=== PATIENT | male | born 1985 | race Caucasian/White ===

== ENCOUNTER 2024-10-02 16:40 | Outpatient (CLI) | payer MEDICAID, SELFPAY ==
[2024-10-02 16:51] LABS: Basophils # 0.1 K/mm3 (0-0.2); Basophils % 0.8 % (0.1-2.0); Eosinophils # 0.2 K/mm3 (0.0-0.4); Hematocrit 42.4 % (42.0-52.0); Hemoglobin 14.5 g/dL (14.1-18.0); Lymphocytes # 2.2 K/mm3 (0.7-4.5); Lymphocytes % 33.9 % (10-50); Mean Corpuscular HGB Conc 34.2 g/dL (31.8-35.4); Mean Corpuscular Hemoglobin 29.5 pg (27.0-31.2); Mean Corpuscular Volume 86.2 fl (80-94); Mean Platelet Volume 8.8 fl (7.4-10.4); Monocytes # 0.7 K/mm3 (0.1-1.0); Monocytes % 11.3 % (1.7-9.3); Neutrophils # 3.3 K/mm3 (1.8-7.8); Neutrophils % 50.7 % (37.0-80.0); Platelet Count 444 K/mm3 (142-424); Red Blood Count 4.92 M/mm3 (4.60-6.20); Red Cell Distribution Width 12.8 % (11.5-17.5); White Blood Count 6.6 K/mm3 (4.8-10.8)
[2024-10-02 17:19] LABS: Chloride 106 mmol/L (98-107)
[2024-10-02 17:20] LABS: Albumin Level 4.6 g/dl (3.5-5.0); Potassium 4.9 mmoL/L (3.5-5.1); Sodium 137 mmol/L (136-145)
[2024-10-02 17:22] LABS: Alanine Aminotransferase 47 U/L (12-78); Alkaline Phosphatase 107 U/L (38-126); Anion Gap 13.9 mEq/L (5-15); Aspartate Amino Transferase 46 U/L (17-59); Bilirubin,Total 0.7 mg/dl (0.2-1.3); Blood Urea Nitrogen 21 mg/dl (9-20); Carbon Dioxide 22 mmol/L (22.0-30.0); Estimated Glomerular Filt Rate 109 ml/min (>60); GFR (African American) 132 ML/MIN (>60); Globulin 2.3 g/dL (1.3-3.2); Total Protein,Serum 6.9 g/dl (6.3-8.2)
[2024-10-02 17:23] LABS: Calcium 10.1 mg/dl (8.4-10.2); Glucose 82 mg/dl (74-100); Iron 111 ug/dL (49-181)
[2024-10-02 17:32] LABS: Total Iron Binding Capacity 365 ug/dL (261-462)
[2024-10-02 17:49] LABS: Hemoglobin A1C 5.2 % (4.0-6.0)
[2024-10-02 17:58] LABS: Ferritin 71.1 ng/ml (17.9-464)
== END 2024-10-02 23:59 | disposition home or self-care (01) ==
LOC: LAB.DROPOF 16:41
PROVIDERS: PCP Internal Medicine; Visit Provider Internal Medicine
DX: G25.81 Restless legs syndrome (principal); Z00.00 Encounter for general adult medical examination without abnormal findings; Z13.1 Encounter for screening for diabetes mellitus
CPT/HCPCS: 80053; 82728; 83036; 83540; 83550; 85025

== ENCOUNTER 2024-10-08 16:02 | Outpatient (CLI) | payer MEDICAID, SELFPAY ==
[2024-10-08 17:06] LABS: Chol/HDL Ratio 6.6 (1-3.5); Cholesterol 191 mg/dl (140-200); HDL Cholesterol 29 mg/dl (40-60); Triglycerides 244 mg/dl (30-150); VLDL Cholesterol 49 mg/dL (0-40)
[2024-10-08 17:17] LABS: Direct LDL Cholesterol 118.24 mg/dL (100-129)
== END 2024-10-08 23:59 | disposition home or self-care (01) ==
LOC: LAB 16:04
PROVIDERS: PCP Internal Medicine; Visit Provider Internal Medicine
DX: Z13.220 Encounter for screening for lipoid disorders (principal)
CPT/HCPCS: 36415; 80061; 83013

== ENCOUNTER 2024-10-15 14:36 | Outpatient (CLI) | payer MEDICAID, SELFPAY ==
[2024-10-16 18:08] LABS: H. pylori Breath Test Negative (Negative)
== END 2024-10-15 23:59 | disposition home or self-care (01) ==
LOC: LAB 14:37
PROVIDERS: PCP Internal Medicine; Visit Provider Internal Medicine
DX: Z86.19 Personal history of other infectious and parasitic diseases (principal)
CPT/HCPCS: 83013

== ENCOUNTER 2024-12-09 10:32 | Outpatient (CLI) | payer MEDICAID, SELFPAY ==
--- NOTE | 2024-12-09 10:34 | XR_ITS ---
FINAL REPORT CLINICAL HISTORY: Shortness of breath COMPARISON: None FINDINGS: PA and lateral views of the chest were obtained. No acute pulmonary density is evident. There is no evidence of effusion or other pleural disease. The mediastinum has a normal appearance. The cardiac silhouette is unremarkable. IMPRESSION: Unremarkable chest exam. Reviewed, Interpreted and Dictated by Robert Harper MD Transcribed by Adeola Cooley Authenticated and [facility]
== END 2024-12-09 23:59 | disposition home or self-care (01) ==
LOC: RAD 10:32
PROVIDERS: PCP Internal Medicine; Visit Provider Internal Medicine
DX: R06.02 Shortness of breath (principal)
CPT/HCPCS: 71046